=== PATIENT | female | born 1990 | race Caucasian/White ===

== ENCOUNTER 2017-08-24 12:47 | Emergency (ER) | payer SELFPAY ==
[2017-08-24 12:48] VITALS: BP 121/85; PULSE 86; RESP 14; TEMP 36.8; O2SAT 100; BMI 24.6
--- NOTE | 2017-08-24 13:15 | RAD_ITS ---
STUDY: X-RAY - RIGHT HAND REASON FOR EXAM: Female, 27 years old. Fifth metacarpal injury. TECHNIQUE: 3 view(s) of the hand. COMPARISON: None. FINDINGS: Normal radiocarpal articulation. Normal distal radioulnar joint. Normal visualized carpal bones. Normal carpal articulations Normal carpometacarpal articulation of the thumb. Normal second through fifth carpometacarpal joints. There is deformity of the fifth metacarpal in keeping with old boxer type fracture. Normal metacarpophalangeal joint of the thumb. Normal interphalangeal joint of the thumb. Normal proximal and distal phalanges of the thumb. Normal metacarpophalangeal joints of the second through fifth fingers. Normal proximal and distal interphalangeal joints of the second through fifth fingers. Normal phalanges of the second through fifth fingers. Soft tissue swelling. RAD/Hand Min 3 Views IMPRESSION: Healed boxer type fracture of the fifth metacarpal. Soft tissue swelling. Electronically Signed: Chapincito Parry MD at 13:52 EDT Tel [phone], Service support ,
[2017-08-24] MEDS: Naproxen 500 MG Tablet PO (13:51)
--- NOTE | 2017-08-24 14:34 | ED.DCSUM_ITS ---
- ER Visit Summary Date of Service: 08/24/17 Chief Complaint: Fall History of Present Illness: The patient is a 27 F with no primary care physician. She reports that yesterday she went to move out of a doorway and loss of balance tripped over a nightstand. States that she injured her right hand. She has been history of 10 severity. She denies any other injuries. Physical Examination: Vitals: Stable. Afebrile. Neck: No vertebral tenderness. Full ROM without difficulty. Cleared by NEXUS criteria. Back: No vertebral tenderness. General: A&O x 3. NAD. Cardiovascular exam: Regular rate and rhythm, no murmur, rub or gallop. Respiratory exam: Chest nontender. No crepitus. Clear to auscultation bilaterally. No wheezes or stridor. Abdominal exam: Soft, nontender, nondistended, normal bowel sounds. No pain in RUQ or LUQ specifically. No peritoneal signs. Extremity: Soft tissue swelling, contusion, moderate tenderness palpation to the proximal portion of the dorsum of her fifth metacarpal on the right. She is neurovascular intact distal this.. Test Results: X-ray shows a old boxer's fracture and soft tissue swelling. There are no acute fractures. Emergency Department Course and Treatment: Patient was treated with naproxen and is resting comfortably. Treatment Plan: Patient will be discharged on naproxen. Instructed follow-up Dr. Atkinson in 1 week if not improving. Disposition: To home in improved and stable condition. Impression: 1. Right hand contusion. This note was generated with [employer] dictation software. It may contain incorrect words, spelling, and punctuation that were not noted in review of the chart prior to signing ED Disposition - Plan for ED Patient: Disposition: Home or Assisted Living Chief Complaint: Upper Extremity Injury Instructions: ED Contusion Hand Prescriptions: Naproxen [Naprosyn] 500 mg PO BID #14 tablet Referrals: Vini Atkinson DO [NON CLINICAL AFFILIATE] - 1 Week if not improving
== END 2017-08-24 14:53 | disposition home or self-care (01) ==
PROVIDERS: Emergency Provider Emergency Medicine
DX: S60.221A Contusion of right hand, initial encounter (principal); W18.09XA Striking against other object with subsequent fall, initial encounter; Y93.9 Activity, unspecified; Y92.9 Unspecified place or not applicable; Y99.9 Unspecified external cause status; Z72.0 Tobacco use
CPT/HCPCS: 73130; 99283

== ENCOUNTER 2021-01-24 21:14 | Emergency (ER) | payer MEDICAID, SELFPAY ==
[2021-01-24 21:15] VITALS: BP 141/91; PULSE 107; RESP 16; TEMP 36.4; O2SAT 98; BMI 21.6
--- NOTE | 2021-01-24 21:59 | EDS_ITS ---
HPI History of Present Illness Chief Complaint: Abscess Informant: patient Narrative Narrative: Patient presents with concern for MRSA on her left heel. She states she has had calluses and blisters all summer. The one on the left heel is starting to get a little bit red and tender over the last couple days. She is try to keep it clean. There is been no drainage. No fevers chills sweats nausea or vomiting. When she fell earlier today she did feel a firm area that was very small by the right side of her vagina but it was not tenderness. She is can discern this could be an early abscess also. She has had abscesses drained in her axilla in the past. She does not have any symptoms there. No history of diabetes or immunosuppression. Patient has no medical problems No medicines Allergy to nickel No recent surgeries Patient is currently homeless but has been staying at a correction. She can shower 5 days a week. She has limited ability to fill medicines. PFSH PFSH Home Medications naproxen 500 mg PO BID #14 tab 08/24/17 [Rx Last Taken Unknown] cephalexin 500 mg PO Q6 #40 cap 01/24/21 [Rx Last Taken Unknown] sulfamethoxazole-trimethoprim [Bactrim DS] 1 tab PO BID #20 tab 01/24/21 [Rx Last Taken Unknown] Allergy/AdvReac Type Severity Reaction Status Date / Time nickel Allergy Rash Verified 01/24/21 21:15 Social History Smoking Status: Current every day smoker tobacco type: cigarettes ROS ROS ED Constitutional Constitutional ED: Denies chills, fever(s) or subjective ENT ENT ED: Denies rhinorrhea or sore throat Cardiovascular Cardiovascular: Denies chest pain or palpitations Respiratory/Chest Respiratory/Chest: Denies cough or dyspnea Gastrointestinal Gastrointestinal: Denies nausea or vomiting Genitourinary Genitourinary ED: Reports other Details: See history of present illness. ; Denies dysuria, hematuria or urinary frequency Musculoskeletal Musculoskeletal: Denies arthralgias, back pain, myalgias or neck pain Integumentary Reports abscess Neurologic Neurologic: Denies headache(s) or weakness Endocrine Endocrinology: Denies polydipsia or polyuria Allergic/Immunologic Allergic/Immunologic ED: Denies urticaria EXAM Physical Exam Const Vital Signs: 01/24/21 21:15 Temperature 97.6 F L Temperature Source Temporal Pulse Rate 107 H Respiratory Rate 16 Blood Pressure 141/91 H Blood Pressure Mean 107 Pulse Ox 98 Oxygen Delivery Method Room Air Positive well nourished and well developed General Appearance ED: well developed and NAD HEENT Reports moist mucous membranes Eyes General Eye ED: Negative for pale conjunctiva or scleral icterus Resp normal respiratory effort GI normal to inspection, nondistended, normoactive bowel sounds and non-tender Palpation: soft Narrative: At the right lower aspect of the vaginal introitus the patient has an area that is a little bit firm. But there is no erythema or warmth. No notable tenderness. This might be a small internal tear. It is only about 4 mm around. No sign of abscess or anything that could be drained. There is no visible discharge. Back/Spine no CVA tenderness Extremity Extremity Narrative: Patient has some moist feet. No sign of fungal involvement. Both heels have significant calluses. The left one has a little bit of erythema. There is some tenderness. There may be a little bit of purulence in an area about a centimeter around. No lymphangitic streaking. Neuro oriented x3 Sensorium / Orientation: alert Psych mental status grossly normal Skin Skin Narrative: See above. MDM MDM MDM Narrative Medical decision making narrative: I discussed options with the patient. I explained that we could anesthetize the heel and try to get some drainage. This is a small area but there may be some purulence. However there is also some discomfort with this. There is also risk of scarring. Patient would like to try warm compresses and antibiotics and see what happens for the next few days. I think this is a reasonable option. The area by the right vaginal opening does not need any treatment at this time. We will give the patient a dose of antibiotics here. We will fill her antibiotics here as she has limited ability to get them elsewhere. We discussed reasons to return and necessary follow-up. We explained that she still may need further procedure in the future. Discharge Plan Triage Chief Complaint: Abscess ED Provider: Freddy Reynolds Dx/Rx/DC Orders Clinical Impression: Cellulitis of heel, left Instructions: ED Skin Infec MRSA Suspect Conf Prescriptions: New sulfamethoxazole-trimethoprim [Bactrim DS] 800-160 mg tablet 1 tab PO BID Qty: 20 RF: 0 cephalexin [cephalexin] 500 MG capsule 500 mg PO Q6 Qty: 40 RF: 0 No Action naproxen 500 MG tablet 500 mg PO BID Qty: 14 RF: 0 Primary Care Provider: Care Physician,No Primary Referrals: Ophelia Dean MD [STAFF PHYSICIAN] - 3-5 Days if not improving Care Physician,No Primary [Primary Care Provider] - Disposition Disposition: Home, Self Care
[2021-01-24] MEDS: Smz/Tmp Ds Tablet 1 TABLET PO (22:23)
[2021-01-24] MEDS: Cephalexin 250 MG Capsule 500 MG PO (22:23)
--- NOTE | 2021-01-24 22:24 | ED.RN ---
pt GIVEN SUGGESTION ON HOW TO GET HER RX PAID FOR. ENCOURAGED PT TO GET MEDICAID PAPER WORKED COMPLETED. ENCOURAGED PT TO SEE [facility] OR TO COMPLETE SUPERVISOR PURIFICATION DOCUMENTATION BEFORE DR. PASCUAL. ENCOURAGED PT TO CALL 180 FOR [facility] INFORMATION. PT STATED SHE HAS BEEN THERE BEFORE BUT IS WILL TO TRY TO GO BACK.
== END 2021-01-24 22:25 | disposition home or self-care (01) ==
PROVIDERS: Emergency Provider Emergency Medicine
DX: L03.116 Cellulitis of left lower limb (principal); F17.210 Nicotine dependence, cigarettes, uncomplicated; Z59.01 Sheltered homelessness; Z79.1 Long term (current) use of non-steroidal anti-inflammatories (NSAID)
CPT/HCPCS: 99285